=== PATIENT | female | born 1950 | race Caucasian/White ===

== ENCOUNTER 2019-10-02 11:36 | Day surgery (SDC) | payer MEDICARE ==
[2019-10-02] VITALS (9 sets, daily range): BP systolic 118–145; BP diastolic 42–95
[~2019-10-02] VITALS: Ht 157.5 cm; Wt 87.1 kg
[2019-10-02] MEDS ORDERED: normal saline 1,000 ML IV SCH (12:15)
[2019-10-02] MEDS ORDERED: diphenhydrAMINE 25mg capsule PO PRN (12:15)
[2019-10-02] MEDS ORDERED: BUSP30TA2 PO (12:26)
[2019-10-02] MEDS ORDERED: ALB0.5UD IH (12:26)
[2019-10-02] MEDS ORDERED: AZEL137S4 BOTHNARES (12:26)
[2019-10-02] MEDS ORDERED: PANT-47 PO (12:26)
[2019-10-02] MEDS ORDERED: BENA5TAB39 PO (12:26)
[2019-10-02] MEDS ORDERED: DESV100T PO (12:26)
[2019-10-02] MEDS ORDERED: BUDE180A INH (12:26)
[2019-10-02] MEDS ORDERED: CALC-1197 PO (12:26)
[2019-10-02] MEDS ORDERED: CLON-527 PO (12:26)
[2019-10-02] MEDS ORDERED: LIOT5TAB14 PO (12:26)
[2019-10-02] MEDS ORDERED: EST1T PO (12:26)
[2019-10-02 12:29] LABS: BASOPHILS % (AUTO) 0.5 % (0-1); EOSINOPHILS # (AUTO) 0.2 X10'3 (0-0.9); HEMATOCRIT 38.4 % (35.0-45.0); HEMOGLOBIN 12.7 g/dl (12.0-16.0); LYMPHOCYTES # (AUTO) 1.2 X10'3 (1.1-4.8); LYMPHOCYTES % (AUTO) 23.3 % (21-51); MEAN CORPUSCULAR HEMOGLOBIN 27.6 PG (27.0-31.0); MEAN CORPUSCULAR VOLUME 83.7 FL (78-98); MEAN PLATELET VOLUME 8.9 FL (7.4-10.4); MONOCYTES # (AUTO) 0.6 X10'3 (0-0.9); MONOCYTES % (AUTO) 11.1 % (2-12); NEUTROPHILS # (AUTO) 3.3 X10'3 (1.8-7.7); NEUTROPHILS % (AUTO) 61.1 % (42-75); PLATELET COUNT 123 X10'3 (140-440); RED CELL DISTRIBUTION WIDTH 14.7 % (11.5-14.5); WHITE BLOOD COUNT 5.4 X10'3 (4.5-11.0)
[2019-10-02] MEDS ORDERED: LIDOcaine 1% (10mg/ml)w/preservative injection 20ml MDV ONE (12:34)
[2019-10-02] MEDS ORDERED: midazolam 2 mg/2 ml injection ONE ×2 (12:34→13:05)
[2019-10-02] MEDS ORDERED: fentaNYL/PF 50MCG/1 ML 2ML syringe ONE (12:34)
[2019-10-02] MEDS ORDERED: iohexol 350MG/ML 100ml bottle IV ONE (12:34)
[2019-10-02] MEDS ORDERED: heparin 1,000unit/ml 10ml vial 10 ML ONE (12:34)
[2019-10-02] MEDS ORDERED: iohexol 350 MG/ML 50ML vial IV ONE (12:34)
[2019-10-02 12:37] LABS: ALBUMIN 3.2 G/DL (3.4-5.0); ANION GAP 8 (8-16); BLOOD UREA NITROGEN 14 MG/DL (7-18); BUN/CREATININE RATIO 15.6 (6.6-38.0); CALCIUM 8.2 MG/DL (8.5-10.1); CHLORIDE 111 MMOL/L (99-107); GLUCOSE 107 MG/DL (70-104); MAGNESIUM 1.9 MG/DL (1.5-2.4); POTASSIUM 3.6 MMOL/L (3.5-5.1); SODIUM 143 MMOL/L (135-145); TOTAL CARBON DIOXIDE 24.2 MMOL/L (24-32); eGFR 62 ML/MIN
== END 2019-10-02 17:05 | disposition home or self-care (01) ==
LOC: SSTAY O 11:36
PROVIDERS: ATTEND Internal Medicine Cardiovascular Disease
DX: R94.39 Abnormal result of other cardiovascular function study (principal); R07.9 Chest pain, unspecified; I10 Essential (primary) hypertension; J45.909 Unspecified asthma, uncomplicated; K21.9 Gastro-esophageal reflux disease without esophagitis; F32.89 Other specified depressive episodes; F41.9 Anxiety disorder, unspecified; I47.1 Supraventricular tachycardia; Z88.1 Allergy status to other antibiotic agents; Z88.7 Allergy status to serum and vaccine; Z79.899 Other long term (current) drug therapy
CPT/HCPCS: 36415; 80048; 83735; 85025; 85610; 93005; 93458; 99152; C1769; C1894; J1644; J2001; J2250; J3010; Q0163; Q9967; A4620; A6258; C1760

== ENCOUNTER 2021-08-29 06:27 | Day surgery (SDC) | payer MEDICARE ==
[2021-08-29] VITALS (9 sets, daily range): BP systolic 91–137; BP diastolic 37–98
[~2021-08-29] VITALS: Ht 157.5 cm; Wt 91.7 kg
[~2021-08-29 06:27] MED LIST: ALB0.5UD IH; AZEL137S4 BOTHNARES; BENA5TAB39 PO; BUDE180A INH; BUSP30TA2 PO; CALC-1215 PO; CLON-527 PO; DESV100T PO; EST1T PO; LIOT5TAB14 PO; PANT-47 PO
[2021-08-29] MEDS ORDERED: VANCOMYCIN 1,500MG in D5W 500ML IVPB IV ONE (06:50)
[2021-08-29] MEDS ORDERED: clindamycin-Cleocin 900mg/D5W 50 ML IV ONE (06:50)
[2021-08-29] MEDS ORDERED: LURA40TA2 PO (07:07)
[2021-08-29] MEDS ORDERED: IRON150C5 PO (07:07)
[2021-08-29] MEDS ORDERED: BENZ1TAB7 PO (07:07)
[2021-08-29 07:31] LABS: BASOPHILS % (AUTO) 0.5 % (0-1); EOSINOPHILS # (AUTO) 0.2 X10'3 (0-0.9); EOSINOPHILS % (AUTO) 3.7 % (0-6); HEMATOCRIT 33.2 % (35.0-45.0); HEMOGLOBIN 10.8 g/dl (12.0-16.0); LYMPHOCYTES % (AUTO) 23.5 % (21-51); MEAN CORPUSCULAR HEMOGLOBIN 25.1 PG (27.0-31.0); MEAN CORPUSCULAR HGB CONC 32.4 g/dL (33.0-36.5); MEAN CORPUSCULAR VOLUME 77.3 FL (78-98); MEAN PLATELET VOLUME 8.9 FL (7.4-10.4); MONOCYTES # (AUTO) 0.4 X10'3 (0-0.9); NEUTROPHILS # (AUTO) 2.5 X10'3 (1.8-7.7); NEUTROPHILS % (AUTO) 62.3 % (42-75); PLATELET COUNT 114 X10'3 (140-440); RED BLOOD COUNT 4.29 X10'6 (4.20-5.60); RED CELL DISTRIBUTION WIDTH 16.8 % (11.5-14.5); WHITE BLOOD COUNT 4.1 X10'3 (4.5-11.0)
[2021-08-29 07:40] LABS: ANION GAP 11 (8-16); BLOOD UREA NITROGEN 19 MG/DL (7-18); BUN/CREATININE RATIO 19.4 (6.6-38.0); CALCIUM 7.7 MG/DL (8.5-10.1); CHLORIDE 114 MMOL/L (99-107); CREATININE 0.98 MG/DL (0.40-0.90); GLUCOSE 114 MG/DL (70-104); MAGNESIUM 1.9 MG/DL (1.5-2.4); POTASSIUM 3.9 MMOL/L (3.5-5.1); SODIUM 146 MMOL/L (135-145); TOTAL CARBON DIOXIDE 21.3 MMOL/L (24-32); eGFR 56 ML/MIN
[2021-08-29] MEDS ORDERED: LIDOCAINE 2% w/EPI 1:100:000 30mL injection MDV**cath lab 1 only ONE (08:36)
[2021-08-29] MEDS ORDERED: vancomycin 1,000mg inj ONE (08:36)
[2021-08-29] MEDS ORDERED: midazolam 1 mg/ML 2ml injection ONE ×4 (08:36→09:54)
[2021-08-29] MEDS ORDERED: fentaNYL/PF 50MCG/1 ML 2ML syringe ONE (08:36)
[2021-08-29] MEDS ORDERED: normal saline 500ml IV soln 500 ML IV ONE (11:25)
[2021-08-29] MEDS ORDERED: normal saline 1000ml 1,000 ML IV SCH (11:35)
== END 2021-08-29 14:05 | disposition home or self-care (01) ==
LOC: SSTAY O 06:27
PROVIDERS: ATTEND Internal Medicine Cardiovascular Disease
DX: I49.5 Sick sinus syndrome (principal); I35.0 Nonrheumatic aortic (valve) stenosis; I47.1 Supraventricular tachycardia; I10 Essential (primary) hypertension; J45.909 Unspecified asthma, uncomplicated; E03.9 Hypothyroidism, unspecified; F32.89 Other specified depressive episodes; K21.9 Gastro-esophageal reflux disease without esophagitis; F41.9 Anxiety disorder, unspecified; Z88.1 Allergy status to other antibiotic agents; Z88.7 Allergy status to serum and vaccine; Z79.899 Other long term (current) drug therapy
CPT/HCPCS: 33208; 33286; 36415; 71045; 80048; 83735; 85025; 85610; 93005; 99152; 99153; C1894; J2250; J3010; J3370; J3490; A4565; A4620; A5120; A6258